=== PATIENT | male | born 1960 | race Caucasian/White ===

== ENCOUNTER 2018-02-03 22:04 | Emergency (ER) | payer SELFPAY ==
[2018-02-03 22:29] LABS: #Eosinphils 0.2 thou/uL (0.0-0.7); #Lymphocytes 1.6 thou/uL (1.20-3.40); #Monocytes 0.4 thou/uL (0.11-0.59); %Basophils 0.9 % (0.0-1.0); %Eosinophils 3.3 % (0.0-10.0); %Lymphocytes 31.1 % (21.0-51.0); %Monocytes 6.7 % (0.0-10.0); Hemoglobin 13.7 g/dL (14.0-18.0); Mean Corpuscular HGB CONC 33.4 g/dL (32.0-36.0); Mean Corpuscular Hemoglobin 32.3 pg (27.0-31.0); Mean Corpuscular Volume 96.8 fl (80.0-94.0); Mean Platelet Volume 7.4 fL (7.4-10.4); Platelet Count 198 thou/uL (130-400); RBC Distribution Width 12.5 % (11.5-14.5); Red Blood Cell (RBC) Count 4.23 mill/uL (4.70-6.10); White Blood Cell (WBC) Count 5.2 thou/uL (4.8-10.8)
[2018-02-03 22:32] LABS: Bilirubin Negative (Negative); Blood, Urine Negative (Negative); Clarity CLEAR (Clear); Glucose, Urine (Dipstick) Negative (Negative); Leukocyte Negative (Negative); Nitrite Negative (Negative); Protein, Urine (Dipstick) 30 mg/dL (Neg-Trace); Specific Gravity, Urine 1.026 (1.002-1.036)
[2018-02-03 22:34] LABS: Bacteria/HPF None Seen HPF (None Seen); Hyaline Casts/LPF 0-3 HYALINE CAST LPF (0-3 Hyaline); Pathc Cast-AUWi Flag 0.14 (0-2.49); Squamous Epithelial None Seen HPF (0-3); WBC/HPF 0-3 HPF (0-3)
[2018-02-03 22:41] LABS: Amphetamine Not Detected (NotDetected); Barbiturates Screen Not Detected (NotDetected); Benzodiazepine Screen Not Detected (NotDetected); Cocaine Metabolite Screen Not Detected (NotDetected); Medtox Reader # READER 4; Methadone Not Detected (NotDetected); Methamphetamine Not Detected (NotDetected); Opiate Screen Not Detected (NotDetected); Oxycodone Screen Not Detected (NotDetected); Phencyclidine (PCP) Not Detected (NotDetected); THC/Cannabinoid Screen Not Detected (NotDetected); Tricyclic Screen Not Detected (NotDetected)
[2018-02-03 22:42] LABS: Medtox Control Line Valid? VALID (VALID)
[2018-02-03 22:50] LABS: ALT (SGPT) 18 U/L (8-55); AST (SGOT) 18 U/L (5-34); Albumin 3.7 g/dL (3.5-5.0); Alkaline Phosphatase 58 U/L (40-150); Anion Gap 11 mmol/L (10-20); BUN (Urea Nitrogen) 13 mg/dL (8.4-25.7); Bilirubin, Total 0.4 mg/dL (0.2-1.2); CK (CPK) 139 U/L (30-200); Calc. Creatinine Clearance 0 mL/min (70-130); Calcium 8.6 mg/dL (7.8-10.44); Carbon Dioxide 24 mmol/L (22-29); Chloride 107 mmol/L (98-107); Estimated GFR-MDRD 76; Globulin 2.3 g/dL (2.4-3.5); Glucose 104 mg/dL (70-105); Potassium 4.1 mmol/L (3.5-5.1); Sodium 138 mmol/L (136-145)
[2018-02-03 22:55] LABS: CKMB 1.9 ng/mL (0-6.6); Troponin I Less than 0.010 ng/mL (< 0.028)
== END 2018-02-03 23:37 | disposition home or self-care (01) ==
LOC: ERS 22:04
DX: R55 Syncope and collapse (principal); F12.10 Cannabis abuse, uncomplicated; F17.210 Nicotine dependence, cigarettes, uncomplicated
CPT/HCPCS: 80053; 80306; 81003; 81015; 82553; 83735; 84484; 85025; 93005; 96360

== ENCOUNTER 2018-02-05 00:25 | Emergency (ER) | payer SELFPAY ==
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
== END 2018-02-05 02:22 | disposition home or self-care (01) ==
LOC: ERS 00:25
DX: F10.129 Alcohol abuse with intoxication, unspecified (principal); Z71.6 Tobacco abuse counseling; F17.210 Nicotine dependence, cigarettes, uncomplicated
CPT/HCPCS: 70450; 72125; 99406

== ENCOUNTER 2018-02-06 13:33 | Emergency (ER) | payer SELFPAY ==
[2018-02-06 14:00] LABS: #Eosinphils 0.2 thou/uL (0.0-0.7); #Lymphocytes 1.3 thou/uL (1.20-3.40); #Monocytes 0.4 thou/uL (0.11-0.59); #Neutrophils 4.1 thou/uL (1.40-6.50); %Basophils 0.5 % (0.0-1.0); %Eosinophils 2.7 % (0.0-10.0); %Lymphocytes 21.3 % (21.0-51.0); %Monocytes 6.4 % (0.0-10.0); %Neutrophils 69.2 % (42.0-75.0); Hemoglobin 12.6 g/dL (14.0-18.0); Mean Corpuscular HGB CONC 34.5 g/dL (32.0-36.0); Mean Corpuscular Hemoglobin 33.4 pg (27.0-31.0); Mean Corpuscular Volume 96.8 fl (80.0-94.0); Mean Platelet Volume 7.2 fL (7.4-10.4); Platelet Count 194 thou/uL (130-400); RBC Distribution Width 12.8 % (11.5-14.5); Red Blood Cell (RBC) Count 3.79 mill/uL (4.70-6.10)
[2018-02-06 14:28] LABS: CKMB 2.5 ng/mL (0-6.6); Troponin I Less than 0.010 ng/mL (< 0.028)
[2018-02-06 14:28] LABS: ALT (SGPT) 19 U/L (8-55); AST (SGOT) 18 U/L (5-34); Albumin 3.5 g/dL (3.5-5.0); Alkaline Phosphatase 54 U/L (40-150); Anion Gap 9 mmol/L (10-20); BUN (Urea Nitrogen) 11 mg/dL (8.4-25.7); Bilirubin, Total 0.4 mg/dL (0.2-1.2); Calc. Creatinine Clearance 0 mL/min (70-130); Calcium 8.3 mg/dL (7.8-10.44); Carbon Dioxide 26 mmol/L (22-29); Chloride 111 mmol/L (98-107); Estimated GFR-MDRD 67; Globulin 1.9 g/dL (2.4-3.5); Glucose 140 mg/dL (70-105); Potassium 3.8 mmol/L (3.5-5.1); Protein, Total 5.4 g/dL (6.0-8.3); Sodium 142 mmol/L (136-145)
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
== END 2018-02-06 15:52 | disposition home or self-care (01) ==
LOC: ERS 13:33
DX: Z04.1 Encounter for examination and observation following transport accident (principal); F17.210 Nicotine dependence, cigarettes, uncomplicated; V98.8XXA Other specified transport accidents, initial encounter
CPT/HCPCS: 36415; 36416; 70450; 72125; 80053; 80307; 82553; 84484; 85025; 93005; 94760; 96360; 96361

== ENCOUNTER 2018-02-06 16:48 | Emergency (ER) | payer SELFPAY | END 2018-02-06 17:28 | disposition home or self-care (01) | LOC: ERS 16:48 | DX: Z04.1 Encounter for examination and observation following transport accident (principal); F17.210 Nicotine dependence, cigarettes, uncomplicated | CPT/HCPCS: 99283 ==

== ENCOUNTER 2018-02-27 16:27 | Emergency (ER) | payer SELFPAY | END 2018-02-27 17:15 | disposition home or self-care (01) | LOC: ERS 16:27 | DX: Z48.817 Encounter for surgical aftercare following surgery on the skin and subcutaneous tissue (principal); F17.210 Nicotine dependence, cigarettes, uncomplicated; Z79.899 Other long term (current) drug therapy | CPT/HCPCS: 99282 ==

== ENCOUNTER 2018-03-11 13:16 | Outpatient (CLI) | payer SELFPAY ==
--- NOTE | 2018-03-11 19:38 | HP ---
DATE OF SERVICE: 03/11/2018 HISTORY OF PRESENT ILLNESS: Mr. Cem Leung is a very pleasant 57-year-old gentleman who presents to the Wound Center for evaluation of an ulceration of the left medial thigh. The patient states th at the wound began as a pustule at the end of January. He states that he treated the pustule with Neospo rin. He states that the pustule developed into an ulceration which progressively increased in size. He states that he again began applying Neosporin to the lesion of his left medial thigh. The patien t states he was seen in Urgent Care where he was given a tetanus shot and placed on a course of p.o. Bactrim. The patient states he was then referred to [facility] and from there to the Emergency Depa rtment. The patient states that at the time of his visit in the Emergency Department, he was referre d to the Wound Center for further evaluation and treatment. PAST MEDICAL HISTORY: Negative for any chronic medical conditions. PAST SURGICAL HISTORY: 1. Herniorrhaphy, remote. 2. Tonsillectomy. MEDICATION: Aspirin 81 mg. ALLERGIES: No known diagnosed allergies. SOCIAL HISTORY: Significant for tobacco use for approximately 16 years. The patient admits to only social consumption of alcohol. FAMILY HISTORY: Negative for diabetes mellitus or coronary artery disease. PHYSICAL EXAMINATION: VITAL SIGNS: Temperature 98.0, pulse 83, respirations 18, blood pressure 154/77. GENERAL: A 57-year-old gentleman, lying on table in examination room in no acute distress. HEENT: Normocephalic, atraumatic. NECK: No nuchal rigidity. CHEST: Clear to auscultation. CARDIAC: Regular rate and rhythm. ABDOMEN: Soft. EXTREMITIES: An ulceration of the left medial thigh is present which measures approximately 2.5 x 2. 4 cm. Necrotic and nonviable tissue present within the wound margins was debrided with an excisional full-thickness debridement with the use of a curette. No purulent drainage is associated with the w ound. No erythema of the skin surrounding the wound is present. No maceration of the skin of the pe riwound is noted. Granulation tissue is present within the wound margins. NEUROLOGIC: Grossly nonfocal. ASSESSMENT AND PLAN: Ulceration of left medial thigh as described above. Dressing changes of Xerofo rm gauze followed by an ABD will be initiated today. These dressing changes are to be performed on a daily basis after cleansing and irrigation. The patient will be performing his own dressing changes . I will see Mr. Leung again in two weeks. No antibiotics will be prescribed today based upon the appearance of the wound. The patient understands and is in agreement with the preceding treatment pl an.
== END 2018-03-11 13:17 | disposition home or self-care (01) ==
LOC: WCC 13:16
PROVIDERS: ATTEND Family Medicine
DX: L97.129 Non-pressure chronic ulcer of left thigh with unspecified severity (principal)
CPT/HCPCS: 11042; 99203; G0463

== ENCOUNTER 2018-03-27 13:42 | Outpatient (CLI) | payer SELFPAY ==
--- NOTE | 2018-03-27 15:09 | PRG ---
DATE OF SERVICE: 03/27/2018 HISTORY: Mr. Cem Leung is a very pleasant 57-year-old gentleman who presents to the Wound [facility] for evaluation of an ulceration of the left medial thigh. The patient previously stated that the w ound began as a pustule at the end of January. He stated that he treated the pustule with Neosporin. He stated that the pustule developed into an ulceration which progressively increased in size. He stat ed that he again began applying Neosporin to the lesion of his left medial thigh. The patient stated he was seen in Urgent Care where he was given a tetanus shot and placed on a course of p.o. Bactrim. The patient stated he was then referred to [facility] and from there to the Emergency Department. The patient stated at the time of his visit in the Emergency Department, he was referred to the [facility] Center for further evaluation and treatment. After being seen in the Wound Center, the patient was placed on dressing changes of Xeroform gauze. PHYSICAL EXAMINATION: VITAL SIGNS: Temperature 97.8, pulse 99, respirations 18, blood pressure 109/69. EXTREMITIES: An ulceration of the left medial thigh is present which measures approximately 1.5 x 1. 2 cm. The dimensions of the wound at the time of the patient's visit on 03/11/2018 were approximatel y 2.5 x 2.4 cm. The wound is granulating. Necrotic and nonviable tissue present within the wound ma rgins was debrided with an excisional full-thickness debridement with the use of a curette. No purul ent drainage is associated with the wound. No erythema of the skin surrounding the wound is present. No maceration of the skin of the periwound is noted. ASSESSMENT AND PLAN: Ulceration of left medial thigh as described above. Dressing changes of Xerofo rm gauze followed by gauze and tape or alternatively Coban will be initiated today. These dressing c hanges are to be performed on a daily basis after cleansing and irrigation. The patient will be perf orming his own dressing changes. I will see Mr. Leung again in two weeks.
== END 2018-03-27 13:43 | disposition home or self-care (01) ==
LOC: WCC 13:42
PROVIDERS: ATTEND Family Medicine
DX: L97.129 Non-pressure chronic ulcer of left thigh with unspecified severity (principal)
CPT/HCPCS: 11042

== ENCOUNTER 2018-04-10 15:42 | Outpatient (CLI) | payer SELFPAY ==
--- NOTE | 2018-04-10 17:14 | PRG ---
DATE OF SERVICE: 04/10/2018 HISTORY: Mr. Cem Leung is a very pleasant 57-year-old gentleman who presents to the Wound [facility] for evaluation of an ulceration of the left medial thigh. The patient previously stated that the w ound began as a pustule at the end of January. He stated that he treated the pustule with Neosporin. He stated that the pustule developed into an ulceration which progressively increased in size. He stat ed that he again began applying Neosporin to the lesion of his left medial thigh. The patient stated he was seen in Urgent Care where he was given a tetanus shot and placed on a course of p.o. Bactrim. The patient stated he was then referred to [facility] and from there to the Emergency Department. The patient stated at the time of his visit in the Emergency Department, he was referred to the [facility] d Center for further evaluation and treatment. After being seen in the Wound Center, the patient was placed on dressing changes of Xeroform gauze. The patient states that recently he has been leaving his wound open to air. PHYSICAL EXAMINATION: VITAL SIGNS: Temperature 97.7, pulse 83, respirations 21, blood pressure 141/88. EXTREMITIES: The ulceration of the left medial thigh measures approximately 0.5 x 0.5 cm. The wound bed is entirely covered by dry stable eschar. No purulent drainage is associated with the wound. N o erythema of the skin surrounding the wound is present. No maceration of the skin of the periwound is noted. ASSESSMENT AND PLAN: Ulceration of left medial thigh as described above. The wound has almost heale d completely and dressing changes will be discontinued. Mr. Leung will be discharged from clinic to day with followup on a p.r.n. basis.
== END 2018-04-10 15:43 | disposition home or self-care (01) ==
LOC: WCC 15:42
PROVIDERS: ATTEND Family Medicine
DX: Z87.2 Personal history of diseases of the skin and subcutaneous tissue (principal)
CPT/HCPCS: 97602

== ENCOUNTER 2018-09-23 14:06 | Outpatient (CLI) | payer OTHER ==
--- NOTE | 2018-09-23 14:33 | RAD ---
CERVICAL SPINE THREE VIEWS: Indications: Correlation made with CT cervical spine 02-06-18. FINDINGS: Cervical vertebrae maintain normal height and alignment. There are mild degenerative changes noted wi th mild anterior osteophytes and spondylosis. Mild facet hypertrophy. No evidence of fracture or subl uxation. IMPRESSION: Evidence of mild degenerative change. POS: [facility]
== END 2018-09-23 14:07 | disposition home or self-care (01) ==
LOC: RAD 14:06
DX: Z87.828 Personal history of other (healed) physical injury and trauma (principal); M47.812 Spondylosis without myelopathy or radiculopathy, cervical region
CPT/HCPCS: 72040

== ENCOUNTER 2018-10-23 14:39 | Emergency (ER) | payer OTHER ==
--- NOTE | 2018-10-23 15:18 | RAD ---
LEFT ELBOW 4 VIEWS: Date: 10/23/18 HISTORY: Elbow pain after fall. FINDINGS: There are some enthesophyte changes involving the epicondyles of the distal humerus. There are no sig ns of fracture, dislocation, or joint effusion. IMPRESSION: No acute findings. POS: [facility]
[2018-10-23] MEDS ORDERED: Acetaminophen 500 MG TAB ONE (15:51)
== END 2018-10-23 16:14 | disposition home or self-care (01) ==
LOC: ERS 14:39
DX: S50.02XA Contusion of left elbow, initial encounter (principal); F17.210 Nicotine dependence, cigarettes, uncomplicated; W17.89XA Other fall from one level to another, initial encounter

== ENCOUNTER 2018-11-01 11:58 | Emergency (ER) | payer OTHER ==
[2018-11-01] MEDS ORDERED: Naloxone HCl 2 mg/2 ml Syringe ONE (12:05)
[2018-11-01 12:25] LABS: #Basophils 0.1 thou/uL (0.0-0.2); #Eosinphils 0.1 thou/uL (0.0-0.7); #Monocytes 0.4 thou/uL (0.11-0.59); #Neutrophils 3.5 thou/uL (1.40-6.50); %Basophils 1.6 % (0.0-1.0); %Eosinophils 1.5 % (0.0-10.0); %Lymphocytes 33.3 % (21.0-51.0); %Monocytes 6.4 % (0.0-10.0); %Neutrophils 57.2 % (42.0-75.0); Hemoglobin 15.1 g/dL (14.0-18.0); Mean Corpuscular HGB CONC 32.4 g/dL (32.0-36.0); Mean Corpuscular Volume 98.7 fL (78.0-98.0); Mean Platelet Volume 7.8 fL (7.4-10.4); Platelet Count 208 thou/uL (130-400); RBC Distribution Width 12.8 % (11.5-14.5); Red Blood Cell (RBC) Count 4.72 mill/uL (4.70-6.10); White Blood Cell (WBC) Count 6.1 thou/uL (4.8-10.8)
[2018-11-01 12:29] LABS: Bilirubin Negative (Negative); Blood, Urine Trace (Negative); Clarity CLEAR (Clear); Glucose, Urine (Dipstick) Negative (Negative); Leukocyte Negative (Negative); Nitrite Negative (Negative); Protein, Urine (Dipstick) Negative (Neg-Trace); Specific Gravity, Urine 1.003 (1.002-1.036); Urobilinogen 0.2 mg/dL (0.2-1.0); pH, Urine 6.5 (5.0-9.0)
[2018-11-01 12:36] LABS: Bacteria/HPF None Seen HPF (None Seen); Hyaline Casts/LPF 0-3 HYALINE CAST LPF (0-3 Hyaline); Pathc Cast-AUWi Flag 0.14 (0-2.49); RBC/HPF None Seen HPF (0-3); Squamous Epithelial 0-3 HPF (0-3); WBC/HPF None Seen HPF (0-3)
[2018-11-01 12:40] LABS: Amphetamine Not Detected (NotDetected); Barbiturates Screen Not Detected (NotDetected); Benzodiazepine Screen Not Detected (NotDetected); Cocaine Metabolite Screen Not Detected (NotDetected); Medtox Control Line Valid? VALID (VALID); Medtox Reader # READER 1; Methadone Not Detected (NotDetected); Methamphetamine Not Detected (NotDetected); Opiate Screen Not Detected (NotDetected); Oxycodone Screen Not Detected (NotDetected); Phencyclidine (PCP) Not Detected (NotDetected); THC/Cannabinoid Screen Not Detected (NotDetected); Tricyclic Screen Not Detected (NotDetected)
[2018-11-01 12:49] LABS: Acetaminophen Less than 6.0 mcg/mL (10.0-30.0); Alcohol Less than 10 mg/dL (Less than 10); Salicylate Less than 8.0 mg/dL (15.0-30.0)
[2018-11-01 12:50] LABS: ALT (SGPT) 15 U/L (8-55); AST (SGOT) 14 U/L (5-34); Albumin 3.2 g/dL (3.5-5.0); Alkaline Phosphatase 52 U/L (40-150); Anion Gap 12 mmol/L (10-20); BUN (Urea Nitrogen) 12 mg/dL (8.4-25.7); Bilirubin, Total 0.5 mg/dL (0.2-1.2); CK (CPK) 126 U/L (30-200); Calc. Creatinine Clearance 0 mL/min (70-130); Carbon Dioxide 22 mmol/L (22-29); Chloride 107 mmol/L (98-107); Estimated GFR-MDRD 63; Globulin 1.7 g/dL (2.4-3.5); Glucose 104 mg/dL (70-105); Potassium 3.8 mmol/L (3.5-5.1); Protein, Total 4.9 g/dL (6.0-8.3); Sodium 137 mmol/L (136-145)
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
== END 2018-11-01 14:19 | disposition home or self-care (01) ==
LOC: ERS 11:58
DX: R55 Syncope and collapse (principal); F17.210 Nicotine dependence, cigarettes, uncomplicated
CPT/HCPCS: 36416; 51701; 70450; 72125; 80053; 80306; 80307; 81003; 81015; 82550; 83690; 84443; 85025; 93005; 96360; J2310